=== PATIENT | female | born 1980 | race African-American/Black ===

== ENCOUNTER 2019-05-20 13:13 | Inpatient (IN) | payer OTHER ==
[~2019-05-20] VITALS: Ht 162.6 cm; Wt 74.4 kg
[2019-05-20] VITALS (11 sets, daily range): BP systolic 124–196; BP diastolic 83–122
--- NOTE | ~2019-05-20 | EMS ---
[place] [address] EMS Patient Care Report Name: CARLOTA NETTLES Room #: 350-P ADM IN M.R.#: [id number] Admission: 05/20/19 Attend Phys: Brendon Gomes MD Discharge: Date of : 76 Report #: [id number] THIS REPORT FOR: //name// Report Transmitted: 05/21/2019 10:49 EMS Care Summary [place], [place]/[facility] Incident [id number] @ 05/20/2019 12:32 Incident Location [address] [place] [address] Patient CARLOTA NETTLES Female, 38 Years 1980 Patient Address [address] [place] [address] Patient History Hypertension,None Reported, Patient Allergies No known allergies, Patient Medications Lisinopril, Chief Complaint CHEST PAIN Disposition Transported No Lights/[place] Dispatch Reason Chest Pain (Non-Traumatic) Transported To [facility] Narrative PT STATES THAT PT HAS CHEST PAIN IN THE CENTER OF PT'S CHEST THAT DOES NOT RADIATE. PT DENIES LOC. PT ADMITS TO SOA AND NAUSEA. PT STATES THAT PT HURTS MORE WHEN PT TAKES A DEEP BREATH IN. PT DENIE ANY PREVIOUS CARDIAC ISSUES. PT STATES LAYING FLAT HURTS PT MORE. PT [place] [address] EMS Patient Care Report Name: CARLOTA NETTLES Room #: [facility] IN ..#: [id number] Admission: 05/20/19 Attend Phys: Brendon Gomes MD Discharge: Date of : 76 Report #: [id number] PT WAS FOUND SITTING ON A SEMI-LINDER POSITION HOLD ING PT'S UPPER ABDMIN. PT SPOKE IN FULL AND COMPLETE SENTENCES. PT IS ABLE TO STAND AND AMBULATE A FEW STEP TO THE COT. PT HAS NO OTHER OBVIOUS ABNORMALITIES. Initial Vitals @12:44P: 84,R: 18,BP: 178/97,Pain: 10/10,GCS: 15,SpO2: 99,Revised Trauma: 12, @12:59P: 84,R: 18,Pain: 10/10,GCS: 15,SpO2: 100,[place] Suspected: false Assessments @12:40MENTAL:Person Oriented,Event Oriented,Time Oriented,Place Oriented,SKIN:HEENT:Eyes: Right Pupil: 4-mm,Eyes: Left Pupil: 4-mm,Head/Face: No Abnormalities,Neck/Airway: No Abnormalities,LUNG SOUNDS:General: Vomiting,General: Nausea,ABDOMEN:General: Vomiting,General: Nausea,PELVIS//GI:EXTREMITIES:Left Arm: No Abnormalities,Right Arm: No Abnormalities,Left Leg: No Abnormalities,Right Leg: No Abnormalities,PULSE:NEURO: Impression Chest pain on breathing Procedures @12:40ALS AssessmentResponse: UnchangedSucceeded@12:49Saline Lock 3cc (18 ga) Site: Forearm-LeftResponse: UnchangedFailed@12:48Aspirin - 324 Milligrams (mg) - OralResponse: Unchanged@12:453-Lead ECGResponse: UnchangedSucceeded@12:4612-Lead ECGResponse: UnchangedSucceeded@12:47Oxygen FlowRate: 4 Device: Nasal Cannula (NC) Response: UnchangedSucceeded Timeline 12:30,Call Received 12:30,Dispatch Notified 12:32,Dispatched 12:33,En Route 12:37,On Scene 12:39,At Patient 12:40,ALS Assessment,Response: UnchangedSucceeded, 12:44,BP: 178/97 M,PULSE: 84,RR: 18 R,SPO2: 99 Ox,ETCO2: ,BG: ,PAIN: 10,GCS: 15, 12:45,3-Lead ECG,Response: UnchangedSucceeded, 12:46,12-Lead ECG,Response: UnchangedSucceeded, 12:47,Oxygen FlowRate: 4 Device: Nasal Cannula (NC) Response: UnchangedSucceeded, 12:48,Aspirin - 324 Milligrams (mg) - Oral,Response: Unchanged 12:49,Saline Lock 3cc 18 ga Site: Forearm-Left,Response: UnchangedFailed, 12:59,BP: / M,PULSE: 84,RR: 18 R,SPO2: 100 Ox,ETCO2: ,BG: ,PAIN: 10,GCS: 15, 13:00,Depart Scene [address] [address] EMS Patient Care Report Name: THOCARLOTA Room #: 350-P [facility] IN .R.#: [id number] Admission: 05/20/19 Attend Phys: Brendon Gomes MD Discharge: Date of : 76 Report #: [id number] 13:07,At Destination 13:34,Call Closed Disclaimer v1.1 Copyright 2019 [employer] This EMS Care Summary contains data elements from the applicable legal record (which may be displayed differently). It is designed to provide pertinent information for the following purposes: continuity of care, clinical quality, and state data reporting. The complete legal record is available to ED staff and administrators of the receiving hospital in [employer] Patient Tracker. All data is provided "as is."
[~2019-05-20 13:13] MED LIST: DARVOCET-N 1001 EACH PO; FUROSEMIDE
[2019-05-20 13:50] LABS: ABSOLUTE NEUTROPHILS 5.4 thou/uL (1.4-8.2); BASOPHILS 0.6 % (0.0-2.0); EOSINOPHILS 1.3 % (0.0-3.0); HEMATOCRIT 41.7 % (37.0-47.0); LYMPHOCYTES 14.7 % (24.0-44.0); MCH 32.2 pg (26.0-34.0); MCHC 33.7 g/dL (28.0-37.0); MCV 95.7 fL (80.0-100.0); PLATELET COUNT 294 thou/uL (150-400); POLYS 74.4 % (36.0-66.0); RBC 4.36 mil/uL (4.20-5.00); RDW 13.2 % (10.5-14.5); WBC 7.2 thou/uL (4.0-11.0)
[2019-05-20 13:58] LABS: ANION GAP 12 mmol/L (7-16); BUN 11 mg/dL (7-18); CALCIUM 9.6 mg/dL (8.5-10.1); CHLORIDE 109 mmol/L (98-107); CO2 22 mmol/L (21-32); CREATININE 0.8 mg/dL (0.6-1.0); GLUCOSE 115 mg/dL (74-106); POTASSIUM 4.4 mmol/L (3.5-5.1); SODIUM 143 mmol/L (136-145)
[2019-05-20 14:10] LABS: LIPASE 102 U/L (73-393); SGOT 17 U/L (15-37); SGPT 14 U/L (30-65); TOTAL BILIRUBIN 0.3 mg/dL (<0.1-1.0); TOTAL PROTEIN 7.6 g/dL (6.4-8.2); TROPONIN-I <0.06 ng/mL (<0.06)
[2019-05-20 15:07] LABS: URINE BILIRUBIN NEGATIVE (Negative); URINE BLOOD 3+ (Negative); URINE CLARITY SL CLOUDY; URINE COLOR YELLOW; URINE GLUCOSE-RANDOM* NEGATIVE (Negative); URINE KETONES NEGATIVE (Negative); URINE LEUKOCYTES-REFLEX NEGATIVE (Negative); URINE NITRITE-REFLEX NEGATIVE (Negative); URINE PROTEIN (DIPSTICK) 1+ (Negative); URINE SPECIFIC GRAVITY >= 1.030 (1.005-1.035)
[2019-05-20 15:16] LABS: SQUAMOUS >10 Many /LPF (0-3); URINE RBC >20 Many /HPF (0-2)
[2019-05-20 15:17] LABS: CASTS None Seen /LPF (None Seen); CRYSTALS None Seen /LPF (None Seen); URINE WBC-REFLEX 0-5 Rare /HPF (0-5)
--- NOTE | 2019-05-20 15:37 | EKG ---
[place] [address] [facility] [place] [address] ELECTROCARDIOGRAM REPORT Name: GARETT NETTLESPapo Sweet Room #: [facility]#: [id number] Admission: 05/20/19 Attend Phys: Discharge: Date of : 76 Report #: [id number] THIS REPORT FOR: //name// [facility] ED Test Date: 2019-05-20 Test Time: 13:26:56 Pat Name: CARLOTA NETTLES Department: Room: Gender: F Market Developer: WG : 1980 Requested By: Jaleesa Schaefer Order Number: [id number] MD: Vladimir Zuleta Measurements Intervals [place] Rate: 66 P: 61 IL: 143 QRS: 52 QRSD: 100 T: 31 QT: 461 QTc: 484 Interpretive Statements Sinus rhythm Left ventricular hypertrophy Baseline wander in lead(s) V1,V2,V3,V4,V5,V6 No previous ECG available for comparison Electronically Signed On 05-20-2019 15:36:49 CDT by Vladimir Zuleta [email or web address] <ELECTRONICALLY SIGNED> By: Vladimir Zuleta MD 05/20/19 1536 1325 25 Vladimir Zuleta MD /JENARO
--- NOTE | 2019-05-20 18:20 | NUR ---
Pt admitted to [facility] (M/S Tele status) from surgery. Pt was assisted from the cart to the bathroom to void. Voided 200 ml of urine. Smear of red on cloth used to clean her bottom after voiding. Pt reports having severe pain in epigastric region. Assisted to the bed and pt began rolling around in the bed from pain. Sinus arrhythmia. Inital BP elevated at 188/91 (MAP 114). Skin is warm and dry. Saline lock right AC. Oriented to call light.
--- NOTE | 2019-05-20 19:00 | NUR ---
Call placed to Dr Gomes regarding hypertension and continued severe pain despite receiving 50 mcg Fentanyl. Pt also nauseated. Dr Gomes entering new orders.
--- NOTE | 2019-05-20 19:30 | NUR ---
Dr Gomes here. Severe pain continues. Dilaudid 1 mg given IV-see emar. Orders for Stat CT scan.
[2019-05-20] MEDS ORDERED: CYMBALTA60 MG PO (22:48)
[2019-05-20] MEDS ORDERED: ZESTRIL40 MG PO (22:49)
[2019-05-20] MEDS ORDERED: NORVASC5 MG PO (22:50)
[2019-05-20] MEDS ORDERED: VALIUM5 MG PO (22:51)
[2019-05-20] MEDS ORDERED: ZANAFLEX4 MG PO (22:54)
--- NOTE | 2019-05-20 23:49 | NUR ---
Admission history and assessments completed. Careplan initiated.
[2019-05-21] VITALS (8 sets, daily range): BP systolic 101–151; BP diastolic 69–93
--- NOTE | 2019-05-21 04:42 | NUR ---
Patient making slow progress towards outcome goals. Continued nausea and epigastric pain medicated with zofran and hydromorphone with some relief. Anxiety well controlled with Valium which patient is used to taking at home. Patient insistent on taking clear liquids which made nausea worse. NPO after MN. Mouth swabs given. Gait steady, up to BSC x 1 assist.
[2019-05-21 05:57] LABS: ABSOLUTE NEUTROPHILS 7.7 thou/uL (1.4-8.2); BASOPHILS 0.2 % (0.0-2.0); EOSINOPHILS 0.1 % (0.0-3.0); HEMATOCRIT 38.7 % (37.0-47.0); HEMOGLOBIN 12.7 gm/dL (12.0-15.0); LYMPHOCYTES 7.7 % (24.0-44.0); MCH 31.8 pg (26.0-34.0); MCHC 32.8 g/dL (28.0-37.0); MONOCYTES 6.5 % (1.0-8.0); PLATELET COUNT 277 thou/uL (150-400); POLYS 85.5 % (36.0-66.0); RBC 3.99 mil/uL (4.20-5.00); RDW 12.8 % (10.5-14.5)
[2019-05-21 06:28] LABS: ANION GAP 16 mmol/L (7-16); BUN 7 mg/dL (7-18); CALCIUM 8.7 mg/dL (8.5-10.1); CHLORIDE 106 mmol/L (98-107); CO2 20 mmol/L (21-32); CREATININE 0.7 mg/dL (0.6-1.0); GLUCOSE 94 mg/dL (74-106); MAGNESIUM 1.6 mg/dL (1.8-2.4); SODIUM 142 mmol/L (136-145); TROPONIN-I <0.06 ng/mL (<0.06)
[2019-05-21 06:36] LABS: POTASSIUM 3.1 mmol/L (3.5-5.1)
--- NOTE | 2019-05-21 06:42 | NUR ---
SBP improved to 120-140's with pain and nausea control.
--- NOTE | 2019-05-21 15:22 | NUR ---
INITIAL ASSESSMENT: Received consult. SW reviewed chart and spoke with nursing and attending physician. Pt was admitted from home due to cholecystitis. Pt had lap kari earlier today. SW met with pt at bedside. Introduced role of SW. Pt is alert/orientated x 4. Pt was not feeling well and asked to see SW at a later time. Per chart, pt lives at home with her spouse. Prior to admission, pt was independent with ADLs. At this time, no discharge needs identified. Plan is for pt to discharge home when medically stable. SW is following to assist as needed with discharge planning.
--- NOTE | 2019-05-21 18:29 | NUR ---
ASSUMED CARE OF PT APPROX. 1340. PATIENT CAME TO THE FLOOR AT THAT TIME FROM SURGERY. PATIENT HAD LAP MARTIN, 4 LAP SITES SECURED WITH DERMABOND. LAP SITES C/D/I. PT IN PAIN AND ABD DISTENDED AND SOFT. PATIENT VOMITED 25CC YELLOW IN COLOR. PAIN AND NAUSEA MEDICATION GIVEN. PATIENT RESTING IN BED, FAMILY AT BEDSIDE. PATIENT WILL DISCHARGE TO AND IS AWARE. VSS, DENIES SOA, NO SIGNS OF DISTRESS. IV REMOVED FROM RIGHT AC D/T C/O BURNING AND STINGING. WILL CONTINUE TO MONITOR. PATIENT NSR ON TELE, HAS BEEN MOVED TO MED-SURG. WILL CONTINUE TO MONITOR.
--- NOTE | 2019-05-21 21:04 | NUR ---
PATIENT ALERT AND ORIENTED WITH PAIN. PATIENT TO SURGERY ABOUT 0945. REPORT GIVEN TO CORRIE, TAX CLERK. GAVE REPORT TO DWAYNE KENNEDY TO AND SHE TOOK OVER CARE.
[2019-05-22 04:57] VITALS: BP 110/73
--- NOTE | 2019-05-22 05:08 | NUR ---
PT IS O/A X4.PT IS DAY 1 POST OP.PT IS UP WITH ASSIST.PT HAD LAP MARTIN WITH 4 SITE DERMA BAND .PT HAD ZOFRIM FOR NAUSEA AND PAIN IS BEING MANAGED WITH DILAUDID Q2 AND HYDROCODONE Q4 WITH LITTLE RELIEF OR NO RELIEF .PT IS ON A REGULAR DIET.PT VOIDED X2 IN BSC.CONTINUE POC TILL EOS
[2019-05-22 07:40] VITALS: BP 125/73
--- NOTE | 2019-05-22 09:59 | NUR ---
Assumed pt care at 7am.Assessment completed.vss.Pt medicated with po pain med but still wanted iv. Rn informed pt that med was too soon to give but wait till due time.Am meds given as ordered but pt wanted miralax held till noon. Iv pain med given with relief.Will continue to monitor.
[2019-05-22 11:01] LABS: HEMATOCRIT 35.6 % (37.0-47.0); MCH 32.3 pg (26.0-34.0); MCHC 33.6 g/dL (28.0-37.0); RBC 3.71 mil/uL (4.20-5.00); RDW 12.8 % (10.5-14.5); WBC 7.1 thou/uL (4.0-11.0)
[2019-05-22 11:13] LABS: CALCIUM 8.6 mg/dL (8.5-10.1); CREATININE 0.8 mg/dL (0.6-1.0); MAGNESIUM 1.9 mg/dL (1.8-2.4); POTASSIUM 3.4 mmol/L (3.5-5.1); TOTAL BILIRUBIN 0.4 mg/dL (<0.1-1.0); TOTAL PROTEIN 6.2 g/dL (6.4-8.2)
[2019-05-22 15:34] VITALS: BP 127/74
[2019-05-22 19:32] VITALS: BP 143/83
[2019-05-23 03:55] VITALS: BP 154/94
[2019-05-23 04:19] LABS: HEMATOCRIT 35.6 % (37.0-47.0); HEMOGLOBIN 11.8 gm/dL (12.0-15.0); MCH 32.2 pg (26.0-34.0); MCHC 33.2 g/dL (28.0-37.0); MCV 97.1 fL (80.0-100.0); RBC 3.67 mil/uL (4.20-5.00); WBC 4.9 thou/uL (4.0-11.0)
--- NOTE | 2019-05-23 04:30 | NUR ---
PT TRANSFERRING TO BEDSIDE COMMODE WITH STANDBY ASSIST AND IS TOLERATING FAIR. LORTAB AND DILAUDID PROVIDING PAIN RELIEF. DENIES NAUSEA. RESTING COMFORTABLY. NO NEEDS VOICED. CALL LIGHT WITHIN REACH. WILL CONTINUE TO PROIVIDE FREQUENT OBSERVATION.
[2019-05-23 04:38] LABS: CALCIUM 8.2 mg/dL (8.5-10.1); CREATININE 0.7 mg/dL (0.6-1.0); MAGNESIUM 1.9 mg/dL (1.8-2.4); POTASSIUM 3.7 mmol/L (3.5-5.1)
[2019-05-23 08:28] VITALS: BP 140/108
[2019-05-23 15:57] VITALS: BP 146/112
--- NOTE | 2019-05-23 16:36 | NUR ---
PT'S FAMILY BROUGHT IN PATIENT'S HOME MED FOR MS. PT STATES TOOK AM DOSE TAKES BID WILL GET NEXT DOSE AT 2100.
[2019-05-23 19:20] VITALS: BP 130/77
--- NOTE | 2019-05-24 01:56 | NUR ---
PT C/O ABD PAIN,MANAGED WITH MED.PT DENIED N/V SO FAR.UP WITH ASSIST X1 TO TOILET.IVF AND IV ABX ORDERED.PT COMPLAINED EARLIER THAT HER IV SITE WAS LEAKING,IV SITE CHECKED,NO LEAKAGE NOTED.FALL PRECAUTIONS IN PLACE.CALL LIGHT WITHIN REACH.
[2019-05-24 03:15] VITALS: BP 130/78
[2019-05-24 08:29] VITALS: BP 141/83
[2019-05-24] MEDS ORDERED: AUGMENTIN 875-1 EACH PO (12:43)
[2019-05-24] MEDS ORDERED: HYDROCODON-ACE1 EA11 PO (12:44)
[2019-05-24 13:10] VITALS: BP 141/83
[2019-05-24 13:42] VITALS: BP 141/83
--- NOTE | 2019-05-24 14:24 | NUR ---
1400 DISCHARGE PAPERS GONE OVER WITH PATIENT SIGNED AND COPY IN CHART. IV ACSESS DCD ALL BELONGINGS PACKED AND TO BE SENT WITH PATIENT INCLUDING [place] MEDS. MEDICARE PAPERS SIGNED.
--- NOTE | 2019-05-24 23:05 | PATH ---
[facility] [address] [place] [address] PATHOLOGY RPT PROCEDURE Name: CARLOTA REYES A Room #: 440-P [facility] IN M.R.#: [id number] Admission: 05/20/19 Date of : 76 Discharge: 05/24/19 Report #: [id number] Path Case #: [id number] [facility] Accession Number: [id number] . 01 Material submitted: . gallbladder - GALLBLADDER . 01 Clinical history: . Cholecystitis . 02 Diagnosis: "Gallbladder", cholecystectomy: - Acute on chronic cholecystitis. - Cholelithiasis. (CLW:pit; 05/24/2019) [facility] 05/24/2019 1224 Local . 02 Electronically signed: . Carolynn Renner MD, Pathologist NPI- [id number] . 01 Gross description: . The specimen is received in formalin, labeled "Carlota Reyes, gallbladder", is gallbladder measuring 10.2 cm in length and 4.0 cm in maximum diameter with a glistening, smooth and a mojica-childs serosa. A 1.0 x 0.5 x 0.5 cm soft lymph node is identified in the region of the gallbladder neck. The cystic duct region is impacted by a calculus and is dilated. The gallbladder lumen contains minimal mojica-pink bile and multiple multifaceted dark green-yellow calculi measuring 4.2 x 4.0 x 1.0 cm in aggregate. The mucosa is mojica-pink and a diffusely covered by hemorrhagic foci and with no cholesterolosis. The wall is 0.1 cm in average thickness. Representatively submitted in A1. ([facility]; 05/21/2019) [facility] 05/21/[address] [place] [address] . Pathologist provided ICD-10: K80.12 . 02 CPT . 893107 Specimen Comment: A courtesy copy of this report has been sent to Specimen Comment: [phone], . Specimen Comment: Report sent to / DR HAIDER Performed at: [address] [facility] [address] [id number] MD Bobo Rachel MD Phone: [phone] Performed at: [address] [address] PATHOLOGY RPT PROCEDURE Name: CARLOTA REYES A Room #: 440-P [facility] IN M.R.#: [id number] Admission: 05/20/19 Date of : 76 Discharge: 05/24/19 Report #: [id number] Path Case #: [id number] [place] [address] [address], [place], [place] [id number] MD Evelyn Couch MD Phone: [phone]
--- NOTE | 2019-06-03 08:35 | O ---
[facility] [place] [address] OPERATIVE REPORT Name: CARLOTA NETTLES Kee Room #: 440-P [facility] IN M.R.#: [id number] Admission: 05/20/19 Attend Phys: Brendon Gomes MD Discharge: 05/24/19 Date of : 76 Report #: [id number] THIS REPORT FOR: //name// CC: FAM unknown Brendon Gomes DATE OF SERVICE: 05/21/2019 PREOPERATIVE DIAGNOSIS: Acute cholecystitis. POSTOPERATIVE DIAGNOSIS: Acute cholecystitis. OPERATION: Laparoscopic cholecystectomy. SURGEON: Too Becerril MD ANESTHESIA: General. ESTIMATED BLOOD LOSS: 100 mL. SPECIMEN: Gallbladder. DESCRIPTION OF PROCEDURE: After informed consent was obtained, the patient was brought to the operating room and placed supine. SCDs were placed and working, preoperative antibiotics were administered, general anesthesia was induced. The abdomen was prepped and draped in the usual sterile fashion. A 10-mm incision was made above the umbilicus. Fascia was incised and a trocar was placed. Pneumoperitoneum was established. Three right upper quadrant 5-mm ports were placed. Gallbladder was grasped at the fundus and retracted cephalad. Infundibulum was grasped and retracted laterally. She had severe acute cholecystitis. I was able to dissect out the cystic duct and the cystic artery as well as the cystic plate. This clearly delineated the anatomy. Cystic duct and artery were clipped and ligated leaving a clip and a PDS Endoloop on the remaining duct and a clip on the remaining artery. Gallbladder was then taken off the liver bed with electrocautery. It was placed into an Endopouch and removed. Fascia was closed with a [id number] 0 Vicryl. Skin was closed with 4-0 Monocryl. Incisions were sealed with Dermabond. COMPLICATIONS: None. DISPOSITION: The patient was taken to recovery in satisfactory condition. <ELECTRONICALLY SIGNED> By: Too Becerril MD 06/03/19 0835 1209 1218 Too Becerril MD /nt
== END 2019-05-24 14:58 | disposition home or self-care (01) | DRG 419 ==
LOC: ER 13:13 → EROBS 15:41 → 3W 15:41 → 4S 15:41 → 3W 17:20 → 4S 05-21 20:19
PROVIDERS: Nurse Practitioner; Nurse Practitioner Family; ADMIT Internal Medicine
PROC: 0FT44ZZ Resection of Gallbladder, Percutaneous Endoscopic Approach (ICD-10-PCS; principal; 2019-05-21)
DX: K80.00 Calculus of gallbladder with acute cholecystitis without obstruction (principal); I16.0 Hypertensive urgency; I05.0 Rheumatic mitral stenosis; I10 Essential (primary) hypertension; G35 Multiple sclerosis; F17.210 Nicotine dependence, cigarettes, uncomplicated; G62.9 Polyneuropathy, unspecified; E87.6 Hypokalemia; Z79.899 Other long term (current) drug therapy; Z71.6 Tobacco abuse counseling; Z82.49 Family history of ischemic heart disease and other diseases of the circulatory system
CPT/HCPCS: 10100; 10102; 10879; 50010; 50101; 50249; 50411; 50555; 50900; 51489; 51751; 52265; 52266; 53307; 53312; 53314; 54118; 55245; 56462; 56525; 56526; 62110; 62900; 70005